=== PATIENT | male | born 1970 | race Native Hawaiian/Other Pacific Islander ===

== ENCOUNTER 2018-12-29 15:56 | Emergency (ER) | payer OTHER ==
[~2018-12-29] VITALS: Ht 172.7 cm; Wt 73.5 kg
[2018-12-29 16:15] VITALS: TEMP 99.1
[2018-12-29 18:09] VITALS: BP 130/79
== END 2018-12-29 18:09 | disposition home or self-care (01) ==
LOC: ED 15:56
DX: A49.02 Methicillin resistant Staphylococcus aureus infection, unspecified site (principal); L30.3 Infective dermatitis
CPT/HCPCS: 99283